=== PATIENT | female | born 1985 | race Asian ===

== ENCOUNTER 2016-09-14 11:01 | Outpatient (CLI) | payer OTHER | END 2016-09-14 11:02 | disposition home or self-care (01) | DX: N64.4 Mastodynia (principal) ==

== ENCOUNTER 2018-02-12 18:37 | Emergency (ER) | payer OTHER ==
--- NOTE | 2018-02-12 19:58 | ED Physician Documentation ---
PD HPI ABD PAIN - Stated complaint Stated Complaint: ABD PX - Chief complaint Chief Complaint: Abd Pain - History obtained from History obtained from: Patient - History of Present Illness Timing - onset: How many days ago (5) Timing - duration: Days (5) Timing - details: Gradual onset Pain level max: 8 Pain level now: 6 Quality: Aching, Pain Improved by: Laying still Worsened by: Palpation Associated symptoms: No: Fever, Nausea, Vomiting, Hematemesis, Diarrhea, Constipation Similar symptoms before: Diagnosis (ovarian cysts) Recently seen: Not recently seen Review of Systems Constitutional: denies: Fever, Chills Respiratory: denies: Cough GI: denies: Vomiting, Diarrhea, Hematemesis, Bloody / black stool : denies: Dysuria, Frequency, Hesitancy, Discharge, Now EGA Skin: denies: Rash Musculoskeletal: denies: Neck pain, Back pain PD PAST MEDICAL HISTORY - Past Medical History 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 - Past Surgical History Past Surgical History: No - Allergies Allergies/Adverse Reactions: Allergies Allergy/AdvReac Type Severity Reaction Status Date / Time No Known Drug Allergies Allergy Verified 02/12/18 19:04 - Living Situation Living Situation: reports: With family Living Arrangement: reports: At home - Social History Does the pt smoke?: No Does the pt have substance abuse?: No - Family History Family history: reports: Non contributory PD ED PE NORMAL - Vitals Vital signs reviewed: Yes - General General: Alert and oriented X 3, No acute distress - HEENT HEENT: Moist mucous membranes - Neck Neck: Supple, no meningeal sign - Cardiac Cardiac: RRR - Respiratory Respiratory: Clear bilaterally - Abdomen Abdomen: Soft, Non distended, Other (Tender to palpation bilateral lower quadrant, within the pelvis.) - Female Female : Pt declined - Back Back: No CVA TTP, No spinal TTP - Derm Derm: Warm and dry, No rash - Extremities Extremities: No edema - Neuro Neuro: Alert and oriented X 3 - Psych Psych: Normal mood, Normal affect Results - Vitals Vitals: Vital Signs - 24 hr 02/12/18 21:20 Heart Rate 85 Respiratory 17 Rate Blood Pressure 149/70 H O2 Saturation 98 Oxygen O2 Source Room air - Labs Labs: Laboratory Tests 02/12/18 02/12/18 19:53 19:53 Urine Color LIGHT YELLOW Urine Clarity CLEAR Urine pH 5.5 Ur Specific [place] <=1.005 <=1.005 Urine Protein NEGATIVE Urine Glucose (UA) NEGATIVE Urine Ketones NEGATIVE Urine Occult Blood NEGATIVE Urine Nitrite NEGATIVE Urine Bilirubin NEGATIVE Urine Urobilinogen 0.2 (NORMAL) Ur Leukocyte Esterase NEGATIVE Ur Microscopic Review NOT INDICATED Urine Culture Comments NOT INDICATED Urine HCG, Qual NEGATIVE - Rads (name of study) pelvic US Radiology: Prelim report reviewed, EMP read contemporaneously, See rad report ( Bilateral ovarian cysts without evidence of torsion) PD MEDICAL DECISION MAKING - ED course Complexity details: reviewed results, re-evaluated patient, considered differential, d/w patient ED course: She with ovarian cyst on ultrasound. Appears to be causing her pain. Declines a pelvic examination at this time. No vaginal discharge or bleeding. Will have her follow-up with her doctor for further care. Declines pain medication here or for home. Patient counseled regarding signs and symptoms for which I believe and urgent re-evaluation would be necessary. Patient with good understanding of and agreement to plan and is comfortable going home at this time This document was made in part using voice recognition software. While efforts are made to proofread this document, sound alike and grammatical errors may occur. - Sepsis Event Vital Signs: Vital Signs - 24 hr 02/12/18 21:20 Heart Rate 85 Respiratory 17 Rate Blood Pressure 149/70 H O2 Saturation 98 Oxygen O2 Source Room air Departure - Departure Disposition: 01 Home, Self Care Clinical Impression: Ovarian cyst Qualifiers: Laterality: bilateral Qualified Code(s): N83.201 - Unspecified ovarian cyst, right side Condition: Good Instructions: ED Cyst Ovarian Follow-Up: Belinda Collins PA-C [Primary Care Provider] - As Needed Comments: You do have cysts in both of your ovaries. Return if you worsen. Follow up with your doctor for further care. Discharge Date/Time: 02/12/18 21:33
[2018-02-12 20:00] LABS: BILIRUBIN,URINE NEGATIVE (NEGATIVE); GLUCOSE, URINE (UA) NEGATIVE (NEGATIVE); KETONES,URINE (UA) NEGATIVE (NEGATIVE); LEUKOCYTE ESTERASE, URINE NEGATIVE (NEGATIVE); NITRITE,URINE NEGATIVE (NEGATIVE); OCCULT BLOOD,URINE NEGATIVE (NEGATIVE); PH,URINE 5.5 PH (5.0-7.5); PROTEIN,URINE NEGATIVE (NEGATIVE); UROBILINOGEN,URINE 0.2 (NORMAL) E.U./dL (NORMAL)
[2018-02-12 20:02] LABS: CLARITY,URINE CLEAR (CLEAR); HCG UR QUAL NEGATIVE
[2018-02-12 21:20] VITALS: BP 149/70
--- NOTE | 2018-02-12 22:06 | Ultrasound Report ---
Reason: pelvic pain, B Procedure Date: 02/12/2018 Accession Number: [id number] / [id number] Procedure: US - Pelvic w/Transvag+Doppler Comp CPT Code: FULL RESULT: EXAM: PELVIC ULTRASOUND EXAM DATE: 02/12/2018 09:00 PM. CLINICAL HISTORY: Pelvic pain COMPARISON: 12/21/2015. TECHNIQUE: Realtime transabdominal pelvic scan performed to identify the uterus and adnexa and as an overview of other pelvic structures, followed by transvaginal scan to provide greater detail of the uterus and adnexa, with static image documentation. FINDINGS: Uterus: 7.7 x 4.3 x 5.5 cm, volume 94 cc. Retroverted position. Unremarkable overall size and echotexture. Masses: None. Endometrium: 13 mm. Unremarkable. Cervix: Unremarkable. Right Ovary: 4.8 x 3.3 x 5.8 cm, volume 47.9 cc. Simple appearing 3.3 cm cyst. Otherwise unremarkable echotexture and blood flow. Left Ovary: 2.5 x 3.5 x 2.2 cm, volume 10.4 cc. Dominant follicle measuring 17 mm, otherwise unremarkable echotexture and blood flow. Free Fluid: None. Other: None. IMPRESSION: 1. Right ovarian cyst measures 3.3 cm. 2. Dominant follicle left ovary measures 1.7 cm. 3. Unremarkable sonographic appearance of the uterus. 4. No free fluid identified in the pelvis. RADIA
== END 2018-02-12 21:33 | disposition home or self-care (01) ==
LOC: ED 18:37
DX: N83.201 Unspecified ovarian cyst, right side (principal)
CPT/HCPCS: 76830; 76856; 81001; 81003; 81025; 87086; 93975; 99282; 99283

== ENCOUNTER 2018-09-04 08:00 | Outpatient (CLI) | payer BC, OTHER ==
[2018-09-04 20:08] LABS: HB2 TOTAL 15.3 g/dL; HEMOGLOBIN A1C 0.57 g/dL; HEMOGLOBIN A1C % 5.6 % (4.6-6.2)
== END 2018-09-04 23:59 | disposition home or self-care (01) ==
LOC: LAB.N 08:00
PROVIDERS: ATTEND Nurse Practitioner Obstetrics & Gynecology
DX: E66.9 Obesity, unspecified (principal)
CPT/HCPCS: 36415; 83036; 84443

== ENCOUNTER 2019-04-01 07:24 | Emergency (ER) | payer BC, OTHER ==
--- NOTE | 2019-04-01 07:40 | ED Physician Documentation ---
History of Present Illness - Stated complaint Stated Complaint: CHEST BURNING - Chief complaint Chief Complaint: Cardiac - Additonal information Additional information: This is a 33-year-old female who denies past medical history who presents with right-sided chest/breast pain which is intermittent and has been present over the last month. She states that the pain is a dull discomfort in the right breast along her sternal border and also underneath her right breast. She can sometimes localize a specific area that hurts. The pain comes and goes without known inciting factors, she had it for around 3 weeks, and then it resolved for 1 week and then now has recently returned. She has not seen her doctor for this yet. She denies any persistent cough, shortness of breath, left-sided chest pain. No fever. No abdominal pain. Review of Systems Constitutional: denies: Fever Eyes: denies: Loss of vision Nose: denies: Rhinorrhea / runny nose Cardiac: reports: Chest pain / pressure Respiratory: denies: Dyspnea PD PAST MEDICAL HISTORY - Past Medical History Neuro: None PROVIDER NETWORK ANALYST: Ovarian cysts - Past Surgical History Past Surgical History: No - Allergies Allergies/Adverse Reactions: Allergies Allergy/AdvReac Type Severity Reaction Status Date / Time No Known Drug Allergies Allergy Verified 04/01/19 07:29 - Social History Does the pt smoke?: No Smoking Status: Never smoker Does the pt drink ETOH?: No Does the pt have substance abuse?: No - Immunizations Immunizations are current?: No - POLST Patient has POLST: No PD ED PE NORMAL - Vitals Vital signs reviewed: Yes - General General: Alert and oriented X 3, No acute distress - HEENT HEENT: PERRL - Neck Neck: Supple, no meningeal sign - Cardiac Cardiac: RRR - Respiratory Respiratory: Clear bilaterally, Other (Breast exam performed with female carpenter [email or web address]. Breasts are grossly symmetric with no nipple inversion. There is a focal area of tenderness in the right breast along the medial and inferior aspect, no obvious mass palpated. No erythema or overlying skin changes. No lymphadenopathy.) - Abdomen Abdomen: Soft, Non tender, Non distended - Derm Derm: Warm and dry - Extremities Extremities: No deformity - Neuro Neuro: Alert and oriented X 3 - Psych Psych: Normal mood, Normal affect Results - Vitals Vitals: Oxygen O2 Source Room air - EKG (time done) 7:33 Other comments: Other comments (Rate 97, rhythm sinus, left axis deviation/LAFB. There is no ST segment elevation or depression, no abnormal T wave inversions. Qtc 419) - Rads (name of study) CXR 2 view Radiology: Other (Normal chest) PD MEDICAL DECISION MAKING - ED course Complexity details: considered differential (Breast abscess, musculoskeletal pain, mass/tumor, pneumonia, costochondritis, ACS, pulmonary embolism) ED course: On examination patient is well-appearing, she has a focal area of tenderness in the right breast, there is no overlying signs of infection. She is able to pinpoint exact spot which is tender, and pain is reproducible. Using a bedside ultrasound I do not see signs of any or obvious large mass/abscess. There is no abnormal lymphadenopathy on my exam. Chest x-ray is unremarkable, EKG shows no convincing signs of ischemia or dysrhythmia. The duration and character of her pain makes ACS highly unlikely, particularly that this is on the right side loc alized in her breast. The fact that it resolved completely for 1 week and then has recurred and is focally reproduced when her breast also makes pulmonary embolism highly unlikely. She has no signs of DVT, and a normal oxygen saturation. I discussed with her that I am not sure what the exact cause of her breast pain is, but given that she has a focal area of tenderness she likely warrants a radiology ultrasound, mammogram, or other imaging. I discussed the need for close PCP follow-up, patient agrees this plan and will call today for an appointment. I also discussed that if she develops shortness of breath, changing chest pain, or signs of infection such as fever or redness, she needs to return to the emergency department immediately. She agrees with the plan and was discharged home in the care of family. Departure - Departure Disposition: Home, Self Care Clinical Impression: Breast pain Condition: Good Follow-Up: Your,PCP [Other] - Within 1 week (For follow up on Right breast pain) Comments: You were seen today for pain in your right breast. Your chest x-ray and EKG did not show signs of obvious problems with your heart/lungs. I do not see signs of an abscess/infection in the area where you have some tenderness. It is very important that you follow-up with your primary care provider for further assessment of your breast pain, you likely need an ultrasound or mammogram to look into this further. If you develop any trouble breathing, fever, redness or drainage from the area of pain on your breast, or chest pain which is new or different from the current discomfort, return to the emergency department. You may take Tylenol and ibuprofen for discomfort in the meantime. Discharge Date/Time: 04/01/19 09:56
--- NOTE | 2019-04-01 09:02 | XRAY Report ---
Reason: R sided chest pain Procedure Date: 04/01/2019 Accession Number: [id number] / [id number] Procedure: XR - Chest 2 View X-Ray CPT Code: 19957 FULL RESULT: EXAM: CHEST RADIOGRAPHY EXAM DATE: 04/01/2019 08:29 AM. CLINICAL HISTORY: R sided chest pain. COMPARISON: None. TECHNIQUE: 2 views. FINDINGS: Lungs/Pleura: No focal opacities evident. No pleural effusion. No pneumothorax. Normal volumes. Mediastinum: Heart and mediastinal contours are unremarkable. Other: None. IMPRESSION: Normal 2-view chest radiography. RADIA
[2019-04-01 09:56] VITALS: BP 122/80
== END 2019-04-01 09:56 | disposition home or self-care (01) ==
LOC: ED 07:24
DX: N64.4 Mastodynia (principal); I44.4 Left anterior fascicular block
CPT/HCPCS: 71046; 93005; 99282; 99283

== ENCOUNTER 2019-04-04 08:00 | Outpatient (CLI) | payer BC ==
[2019-04-04 19:25] LABS: HCG,QUALITATIVE BLOOD NEGATIVE
== END 2019-04-04 23:59 | disposition home or self-care (01) ==
LOC: LAB.WCP 08:00
PROVIDERS: ATTEND Family Medicine
DX: N64.4 Mastodynia (principal)
CPT/HCPCS: 36415; 84703

== ENCOUNTER 2019-04-11 18:10 | Emergency (ER) | payer BC ==
[2019-04-11 18:19] VITALS: BP 143/85
[2019-04-11] MEDS ORDERED: DEXAMETHASONE 10 MG/ML VIAL PO STA (19:17)
[2019-04-11] MEDS ORDERED: CHERRY SYRUP 10 ML UDC PO ONE (19:17)
[2019-04-11] MEDS ORDERED: IBUPROFEN 800 MG TABLET PO STA (19:17)
--- NOTE | 2019-04-11 19:18 | ED Physician Documentation ---
PD HPI URI - Stated complaint Stated Complaint: SORE THROAT/NECK PX - Chief complaint Chief Complaint: Heent - History obtained from History obtained from: Patient, Family - History of Present Illness Timing - onset: Today, Yesterday Timing duration: Days (2) Timing details: Gradual onset Pain level max: 5 Pain level now: 4 Associated symptoms: Nasal congestion, Rhinorrhea, Sore throat. No: Fever, Chills Contributing factors: Sick contact Improves by: Rest Worsened by: Activity, Breathing, Other (swallowing) Recently seen: Not recently seen Review of Systems Constitutional: denies: Fever Nose: reports: Rhinorrhea / runny nose, Congestion GI: denies: Vomiting : denies: Now EGA Skin: denies: Rash PD PAST MEDICAL HISTORY - Past Medical History Neuro: None FOOD TECHNICIAN: Ovarian cysts - Past Surgical History Past Surgical History: No - Present Medications Home Medications: Ambulatory Orders Medication Instructions Recorded Confirmed Benzonatate [Tessalon Perle] 100 - 200 mg PO TID PRN #30 capsule 04/11/19 Cetirizine HCl/Pseudoephedrine 1 each PO BID PRN #30 tab.er.12h 04/11/19 [Zyrtec-D Tablet] - Allergies Allergies/Adverse Reactions: Allergies Allergy/AdvReac Type Severity Reaction Status Date / Time No Known Drug Allergies Allergy Verified 04/11/19 18:19 - Social History Does the pt smoke?: No Smoking Status: Never smoker Does the pt drink ETOH?: No Does the pt have substance abuse?: No - Immunizations Immunizations are current?: No - POLST Patient has POLST: No PD ED PE NORMAL - Vitals Vital signs reviewed: Yes - General General: Alert and oriented X 3, No acute distress - HEENT HEENT: PERRL, Ears normal, Moist mucous membranes, Pharynx benign - Neck Neck: Supple, no meningeal sign - Cardiac Cardiac: RRR - Respiratory Respiratory: No respiratory distress, Clear bilaterally - Abdomen Abdomen: Soft, Non tender, Non distended - Derm Derm: Warm and dry - Extremities Extremities: No deformity - Neuro Neuro: Alert and oriented X 3 - Psych Psych: Normal mood, Normal affect Results - Vitals Vitals: Oxygen O2 Source Room air - Labs Labs: Microbiology 04/11/19 18:30 Group A Strep Throat Culture - Final Throat Beta Hemolytic Strep Group G Laboratory Tests 04/11/19 18:30 Group A Strep Rapid Negative PD MEDICAL DECISION MAKING - ED course Complexity details: considered differential, d/w patient ED course: Patient with a viral upper respiratory infection. She is well-appearing, nontoxic. Afebrile. Will place on cough medication and decongestants. Will have her follow-up with her doctor for further care. No evidence of pneumonia. Patient counseled regarding signs and symptoms for which I believe and urgent re-evaluation would be necessary. Patient with good understanding of and agreement to plan and is comfortable going home at this time This document was made in part using voice recognition software. While efforts are made to proofread this document, sound alike and grammatical errors may occur. Departure - Departure Disposition: Home, Self Care Clinical Impression: Viral URI with cough Condition: Good Instructions: ED URI Viral Follow-Up: your,doctor in 1 week [Other] Prescriptions: Benzonatate [Tessalon Perle] 100 - 200 mg PO TID PRN #30 capsule PRN Reason: Cough Cetirizine HCl/Pseudoephedrine [Zyrtec-D Tablet] 1 each PO BID PRN #30 tab.er.12h PRN Reason: nasal congestion Comments: Drink plenty of fluids and rest. Return if you worsen. Follow-up with your doctor for further care. You can take Tylenol or Motrin for pain. Discharge Date/Time: 04/11/19 19:41
== END 2019-04-11 19:41 | disposition home or self-care (01) ==
LOC: ED 18:10
DX: J06.9 Acute upper respiratory infection, unspecified (principal)
CPT/HCPCS: 87070; 87430; 99283; 99284; A9270

== ENCOUNTER 2019-10-15 17:54 | Outpatient (CLI) | payer BC | END 2019-10-15 17:55 | disposition home or self-care (01) | LOC: COV 17:54 | PROVIDERS: ATTEND Family Medicine | DX: R05 Cough (principal); J02.9 Acute pharyngitis, unspecified; R68.83 Chills (without fever) | CPT/HCPCS: 81599 ==

== ENCOUNTER 2021-01-03 17:20 | Outpatient (CLI) | payer OTHER | END 2021-01-03 17:21 | disposition home or self-care (01) | LOC: COV 17:20 | PROVIDERS: ATTEND Family Medicine | DX: U07.1 COVID-19 (principal) ==

== ENCOUNTER 2022-02-16 09:19 | Outpatient (CLI) | payer OTHER ==
[2022-02-16 11:52] LABS: BASOPHILS % (AUTO) 0.9 %; EOSINOPHILS % (AUTO) 0.2 %; HCT - HEMATOCRIT 41.6 % (37.0-47.0); HGB - HEMOGLOBIN 14.5 g/dL (12.0-16.0); LYMPHOCYTES # (AUTO) 1.2 10^3/uL (1.5-3.5); LYMPHOCYTES % (AUTO) 26.3 %; MEAN CORPUSCULAR HEMOGLOBIN 32.1 pg (27.0-31.0); MEAN CORPUSCULAR HGB CONC 34.9 g/dL (32.0-36.0); MEAN PLATELET VOLUME 9.4 fL (7.9-10.8); MONOCYTES # (AUTO) 0.5 10^3/uL (0.0-1.0); MONOCYTES % (AUTO) 10.5 %; NEUTROPHILS # (AUTO) 2.9 10^3/uL (1.5-6.6); NEUTROPHILS % (AUTO) 61.9 %; PLT - PLATELET COUNT 422 10^3/uL (130-450); RED BLOOD COUNT 4.52 10^6/uL (4.20-5.40); RED CELL DISTRIBUTION WIDTH 11.8 % (12.0-15.0); WHITE BLOOD COUNT 4.7 x10^3/uL (4.8-10.8)
[2022-02-16 12:10] LABS: ALBUMIN 4.8 g/dL (3.2-5.5); ALBUMIN/GLOBULIN RATIO 1.3 (1.0-2.2); BILIRUBIN,TOTAL 0.9 mg/dL (0.2-1.0); CALCIUM 9.9 mg/dL (8.5-10.3); CREATININE 0.8 mg/dL (0.4-1.0); POTASSIUM 3.9 mmol/L (3.5-5.0); TOTAL PROTEIN 8.5 g/dL (6.7-8.2)
[2022-02-16 12:21] LABS: THYROID STIMULATING HORMONE 3.21 uIU/mL (0.34-5.60)
== END 2022-02-16 09:20 | disposition home or self-care (01) ==
LOC: LAB.N 09:19
PROVIDERS: ATTEND Family Medicine
DX: R03.0 Elevated blood-pressure reading, without diagnosis of hypertension (principal); R10.9 Unspecified abdominal pain; N83.291 Other ovarian cyst, right side
CPT/HCPCS: 36415; 80053; 84443; 85025

== ENCOUNTER 2022-03-01 18:40 | Outpatient (CLI) | payer OTHER ==
--- NOTE | 2022-03-02 13:44 | Ultrasound Report ---
PROCEDURE: Pelvic w/Transvaginal INDICATIONS: OVARIAN CYST TECHNIQUE: Real-time scanning was performed of the pelvic organs, with image documentation. Additional endovagi nal scanning was necessary due to incomplete visualization of the adnexal and endometrial structures by transabdominal scanning. COMPARISON: 02/12/2018. FINDINGS: No pathologic free abdominal or pelvic fluid. Uterus: Uterus is normal in size at 7.6 x 3.7 x 5.9 cm. It has a heterogeneous echotexture without identified fibroids. The endometrium measures 14.3 mm in combined thickness. Ovaries: Right ovary measures 4.6 x 2.9 x 3.4 cm with a Valium of 23.6 mL. It contains 2 complex cys ts, the larger of which measures 2.0 x 2.8 x 2.3 cm, and the smaller of which measures 1.8 x 1.9 x 1. 8 cm. Left ovary: 2.3 x 1.8 x 3.0 cm, with a calculated volume of 6.6 mL. There is a tiny complex cyst rosenda uring 1.3 cm. IMPRESSION: There are bilateral small complicated cystic structures, 2 on the right and one on the left. These ma y potentially represent hemorrhagic cysts. Cannot exclude small endometriomas. Reviewed by: Gregg Obando MD on 03/02/2022 1:43 PM PDT Approved by: Gregg Obando MD on 03/02/2022 1:43 PM PDT Station ID: [id number]
== END 2022-03-01 18:41 | disposition home or self-care (01) ==
LOC: DI 18:40
PROVIDERS: ATTEND Family Medicine
DX: N83.202 Unspecified ovarian cyst, left side (principal); N83.201 Unspecified ovarian cyst, right side